=== PATIENT | female | born 1955 | race Hispanic/Latino ===

== ENCOUNTER → 2024-05-12 | Outpatient (REF) | payer OTHER ==
[~2024-05-12] MED LIST: ALBUMIN 25% 12.5GM 50ML 150 ML IV ONE
[2024-05-12 13:07] LABS: BASOPHILS % 0.4 % (0.0-1.0); EOSINOPHILS # (AUTO) 0.1 (0.0-0.4); EOSINOPHILS % 1.5 % (0.0-6.0); HEMATOCRIT 31.7 % (34.2-44.1); HEMOGLOBIN 9.9 g/dL (12.0-16.0); LYMPHOCYTES # (AUTO) 0.5 (1.0-3.2); LYMPHOCYTES % 9.8 % (18.0-39.1); MEAN CORPUSCULAR HGB CONC 31.2 g/dL (31-35); MEAN CORPUSCULAR VOLUME 86.4 fL (81-99); MONOCYTES # (AUTO) 0.6 (0.2-0.8); MONOCYTES % 10.7 % (4.4-11.3); NEUTROPHILS # (AUTO) 4.1 (2.1-6.9); PLATELET COUNT 106 x10e3/uL (140-360); RED BLOOD COUNT 3.67 x10e6/uL (3.6-5.1); WHITE BLOOD COUNT 5.31 x10e3/uL (4.8-10.8)
[2024-05-12 13:16] LABS: INR 1.18; PROTHROMBIN TIME 15.6 seconds (11.9-14.5)
[2024-05-12 13:17] LABS: PARTIAL THROMBOPLASTIN TIME 27.5 seconds (23.8-35.5)
[2024-05-12 15:16] LABS: BODY FLUID COLOR YELLOW; BODY FLUID TYPE PERITONEAL
[2024-05-12 15:17] LABS: BODY FLUID APPEARANCE CLEAR
[2024-05-12 15:44] LABS: RBC,BODY FLUID < 2000 cells/uL; WBC,BODY FLUID 128 cells/uL
[2024-05-12 16:42] LABS: LYMPHOCYTES,BODY FLUID 53 %; MONO/MACROPHG,BODY FLUID 46 %; NEUTROPHILS,BODY FLUID 1 %; TOTAL CELLS COUNTED (DIFF) 100
== END ==
LOC: US 12:29
PROVIDERS: ATTEND Nurse Practitioner
DX: Z12.11 Encounter for screening for malignant neoplasm of colon (principal); R18.8 Other ascites; K74.69 Other cirrhosis of liver
CPT/HCPCS: 36415; 49083; 82040; 84157; 85025; 85610; 85730; 87070; 87205; 88112; 88305; 89051

== ENCOUNTER → 2024-06-16 | Outpatient (REF) | payer OTHER ==
[~2024-06-16] MED LIST changes: -ALBUMIN 25% 12.5GM 50ML 150 ML IV ONE; +ALBUMIN 25% 12.5GM 50ML 200 ML IV ONE
== END ==
LOC: US 12:46
PROVIDERS: ATTEND Nurse Practitioner
DX: R18.8 Other ascites (principal); K74.60 Unspecified cirrhosis of liver
CPT/HCPCS: 49083